=== PATIENT | male | born 1970 | race African-American/Black ===

== ENCOUNTER 2018-09-30 22:01 | Observation (INO) | payer OTHER ==
--- OUTSIDE RECORDS SUMMARY | 2018-09-30 22:04 | XMS REPORT | Summary of Care ---
:1970 Author Organization [facility] Address [address] [place] [address], [facility] [address] [place] [address]- Encounter HQ Chandler_hallie(FIN) [phone] Date(s): 11/06/17 - 11/06/17 [facility] Spine [address], [facility] [address] [place] [address] [phone] Attending Physician: Yocasta Ko MD Referring Physician: Edwin Jacobsen MD Vital Signs No data available for this section Problem List Condition Effective Dates Status Health Status Informant Aftercare1 02/02/12 Active Allergic rhinitis2 03/07/12 Active Benign hypertension3 Active Carpal tunnel syndrome4 04/02/12 Active Cervical radiculopathy5 04/08/12 Active Chest pain6 12/11/12 Active Disorder of nasal cavity7 01/02/13 Active Duodenitis8 Active Fatigue9 09/09/12 Active Gastro-esophageal reflux disease 12/11/12 Active with moufimnrdaw97 Nytzokcoubzykqo17, 12 04/28/12 Resolved Gastroesophageal reflux hkxqkho30 Active Gout14 02/02/12 Active Guezgmjduuclyh56 Active Imaging of gastrointestinal tract 01/02/13 Active irhvxovw25 Inguinal pain17 12/11/12 Active Kidney botkpil27 01/02/13 Active Left upper quadrant pain19 01/02/13 Active Numbness of limbs20 04/03/12 Active Obesity(Confirmed) Active Obstruction of Eustachian tube21 01/02/13 Active Nrsdnjhjfq67 12/11/12 Active Sleep apnea23 09/09/12 Active 1Data migrated from [employer] on 12/11/14.2Data migrated from [employer] on 12/11/14.3Data migrated from [employer] on 12/11/14.4Data migrated from [employer] on 12/11/14.5Data migrated from [employer] on 12/11/14.6Data migrated from [employer] on 12/11/14.7Data migrated from [employer] on 12/11.8Data migrated from [employer] on 12/11/14.9Data migrated from [employer] on 12/11/14.10Data migrated from [employer] on 12/11/14.11Data migrated from [employer] on 01/29/15.12Data migrated from [employer] on .13Data migrated from [employer] on 12/11/14.14Data migrated from [employer] on 12/11/14.15Data migrated from [employer] on 12/11/14.16Data migrated from [employer] on 12/11/14.17Data migrated from [employer] on .18Data migrated from [employer] on 12/11/14.19Data migrated from [employer] on 12/11/14.20Data migrated from [employer] on 12/11/14.21Data migrated from [employer] on 12/11/14.22Data migrated from [employer] on .23Data migrated from [employer] on 12/11/14. Allergies, Adverse Reactions, Alerts Substance Reaction Severity Status hydrALAZINE-hydroCHLOROthiazide1 Mild Active 1swelling in face Medications No data available for this section Results No data available for this section Immunizations Given and Recorded Vaccine Date Status Refusal Reason diphtheria/pertussis, acel/tetanus adult1 10/03/10 Given 1Result Comment: tdap. Migrated from OBS ; Data migrated from [employer] on 08/16/2015. Procedures Procedure Date Related Diagnosis Body Site Status Appendectomy Completed Tonsillectomy Completed Social History Social History Type Response Substance Abuse Use: None. Employment/School Status: Employed. 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 Activity level: Occasional physical work. Highest education level: High school. Alcohol Current, Type Beer. Frequency: 1-2 times per month. Alcohol use interferes with work or home: No. Drinks more than intended: No. Others hurt by drinking: No. Household alcohol concerns: No. Smoking Status Never smoker; Ready to change: No; Concerns about tobacco use in household: No; Exposure to Tobacco Smoke None; Cigarette Smoking Last 365 Days No; Reg Smoking Cessation Counseling No entered on: 10/15/17 Assessment and Plan No data available for this section
--- OUTSIDE RECORDS SUMMARY | 2018-09-30 22:04 | XMS REPORT | Summary of Care ---
:1970 Author Organization [facility] Address [address] [place] [address]- Encounter HQ Shaw(FIN) [id number] Date(s): 10/15/17 - 10/15/17 [facility] [address] [place] [address] [phone] Discharge Disposition: Home or Self Care Attending Physician: Carlos Trinidad PAIsaiahC Referring Physician: Jody Vincent MSN, RN, MARINE ENGINE MACHINIST APPRENTICE-C Vital Signs Most recent to oldest [Reference Range]: 1 Height 187.96 cm (10/15/17 7:13 AM) Temperature Oral [96.4-99.1 DegF] 98.1 DegF (10/15/17 7:13 AM) Blood Pressure [90-140/60-90 mmHg] 114/80 mmHg (10/15/17 7:13 AM) Peripheral Pulse Rate [60-100 bpm] 76 bpm (10/15/17 7:13 AM) Weight 122.727 kg (10/15/17 7:13 AM) Body Mass Index 34.74 m2 (10/15/17 7:13 AM) Problem List Condition Effective Dates Status Health Status Informant Aftercare1 02/02/12 Active Allergic rhinitis2 03/07/12 Active Benign hypertension3 Active Carpal tunnel syndrome4 04/02/12 Active Cervical radiculopathy5 04/08/12 Active Chest pain6 12/11/12 Active Disorder of nasal cavity7 01/02/13 Active Duodenitis8 Active Fatigue9 09/09/12 Active Gastro-esophageal reflux disease 12/11/12 Active with xnamvczmdku32 Pcstdolwuhelpme58, 12 04/28/12 Resolved Gastroesophageal reflux sdavveh12 Active Gout14 02/02/12 Active Trsxagkszxiygh34 Active Imaging of gastrointestinal tract 01/02/13 Active taauaehd67 Inguinal pain17 12/11/12 Active Kidney srgculk49 01/02/13 Active Left upper quadrant pain19 01/02/13 Active Numbness of limbs20 04/03/12 Active Obesity(Confirmed) Active Obstruction of Eustachian tube21 01/02/13 Active Jrdbyupabo28 12/11/12 Active Sleep apnea23 09/09/12 Active 1Data [...] hydrALAZINE-hydroCHLOROthiazide1 Mild Active 1swelling in face Medications triamcinolone ACETONIDE 40 mg/mL injectable suspension 60 mg, Route: IM, ONCE, Dosing Weight 122.727, kg, Start date: 10/15/17 7:29:00 CDT, Stop date: 10/15/17 7:29:00 CDT Start Date: 10/15/17 Stop Date: 10/15/17 Status: Completed Results No data available for this section Immunizations Given and Recorded Vaccine Date Status Refusal Reason diphtheria/pertussis, acel/tetanus adult1 10/03/10 Given 1Result Comment: tdap. Migrated from [employer] ; Data migrated from [employer] on 08/16/2015. Procedures Procedure Date Related Diagnosis Body Site Status Appendectomy Completed Tonsillectomy Completed Social History Social History Type Response Substance Abuse Use: None. Employment/School Status: Employed. 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 Activity level: Occasional physical work. Highest [...]
--- OUTSIDE RECORDS SUMMARY | 2018-09-30 22:04 | XMS REPORT | Summary of Care ---
:1970 Author Organization [facility] Spine Clinic [facility] Address [address] [place] [address], [facility] [address] [place] [address]- Encounter HQ Chandler_hallie(FIN) [id number] Date(s): 09/11/17 - 09/12/17 [facility] Spine [address], [facility] [address] [place] [phone] Vital Signs No data available for this section Problem List Condition Effective Dates Status Health Status Informant Aftercare1 02/02/12 Active Allergic rhinitis2 03/07/12 Active Benign hypertension3 Active Carpal tunnel syndrome4 04/02/12 Active Cervical radiculopathy5 04/08/12 Active Chest pain6 12/11/12 Active Disorder of nasal cavity7 01/02/13 Active Duodenitis8 Active Fatigue9 09/09/12 Active Gastro-esophageal reflux disease 12/11/12 Active with augdmjvsvok55 Jvjewqdrtsrwffj52, 12 04/28/12 Resolved Gastroesophageal reflux avlavrk21 Active Gout14 02/02/12 Active Ytthfjbrametii47 Active Imaging of gastrointestinal tract 01/02/13 Active ivilrkjd29 Inguinal pain17 12/11/12 Active Kidney ejljscc77 01/02/13 Active Left upper quadrant pain19 01/02/13 Active Numbness of limbs20 04/03/12 Active Obesity(Confirmed) Active Obstruction of Eustachian tube21 01/02/13 Active Czyzwuexxb94 12/11/12 Active Sleep apnea23 09/09/12 Active 1Data [...] Use: None. Employment/School Status: Employed. 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 Activity level: Occasional physical work. Highest [...]
--- OUTSIDE RECORDS SUMMARY | 2018-09-30 22:04 | XMS REPORT | Summary of Care ---
:1970 Author Organization [facility] Spine Clinic [facility] Address [address] [place] [address], [facility] [address] [place] [address]- Encounter HQ Chandler_hallie(FIN) [id number] Date(s): 09/02/17 - 09/03/17 [facility] Spine [address], [facility] [address] [place] [address] [phone] Vital Signs No data available for this section Problem List Condition Effective Dates Status Health Status Informant Aftercare1 02/02/12 Active Allergic rhinitis2 03/07/12 Active Benign hypertension3 Active Carpal tunnel syndrome4 04/02/12 Active Cervical radiculopathy5 04/08/12 Active Chest pain6 12/11/12 Active Disorder of nasal cavity7 01/02/13 Active Duodenitis8 Active Fatigue9 09/09/12 Active Gastro-esophageal reflux disease 12/11/12 Active with hrdcwlyofbv46 Mngwhlidfpczfnj79, 12 04/28/12 Resolved Gastroesophageal reflux Active Gout14 02/02/12 Active Xexywxfrdpbrcm84 Active Imaging of gastrointestinal tract 01/02/13 Active uhwnmbnk21 Inguinal pain17 12/11/12 Active Kidney kbpjyag05 01/02/13 Active Left upper quadrant pain19 01/02/13 Active Numbness of limbs20 04/03/12 Active Obesity(Confirmed) Active Obstruction of Eustachian tube21 01/02/13 Active Opdifyugfn26 12/11/12 Active Sleep apnea23 09/09/12 Active 1Data [...] Use: None. Employment/School Status: Employed. 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 Activity level: Occasional physical work. Highest [...]
--- OUTSIDE RECORDS SUMMARY | 2018-09-30 22:04 | XMS REPORT | Continuity of Care Document ---
:1970 Author Organization Interface Problems Problem Status Onset Classification Date Comments Source Date Reported Disorder of nasal Active 01/03/20 Problem 01/23/2018 Data [facility] cavity<sup>7</sup> 13 migrated Neuro,[facility] from [facility] on 12/11/14. Imaging of Active 01/03/20 Problem 01/23/2018 Data [facility] gastrointestinal 13 migrated Neuro,[facility] tract from [facility] abnormal<sup>16</paul [facility] Group p> on 12/11/14. Kidney Active 01/03/20 Problem 01/23/2018 Data [facility] disease<sup>18</sup 13 migrated Neuro,MH > from [facility] [facility] on 12/11/14. Left upper quadrant Active 01/03/20 Problem 01/23/2018 Data [facility] pain<sup>19</sup> 13 migrated Neuro,[facility] from [facility] on 12/11/14. Obstruction of Active 01/03/20 Problem 01/23/2018 Data [facility] Eustachian 13 migrated Neuro,MH tube<sup>21</sup> from [facility] [employer] [facility] on 12/11/14. Chest Active 12/12/19 Problem 01/23/2018 Data [facility] pain<sup>6</sup> 13 migrated Neuro,[facility] from [facility] on 12/11/14. Gastro-esophageal Active 12/12/19 Problem 01/23/2018 Data [facility] reflux disease with 13 migrated Neuro,[facility] esophagitis<sup>10< from [facility] /sup> [facility] on 12/11/14. Inguinal Active 12/12/19 Problem 01/23/2018 Data [facility] pain<sup>17</sup> 13 migrated Neuro,[facility] from [facility] on 12/11/14. Overweight<sup>22</ Active 12/12/19 Problem 01/23/2018 Data [facility] sup> 13 migrated Neuro,[facility] from [facility] on 12/11/14. Fatigue<sup>9</sup> Active 09/09/19 Problem 01/23/2018 Data [facility] 13 migrated Neuro,[facility] from [facility] on 12/11/14. Sleep Active 09/09/19 Problem 01/23/2018 Data [facility] apnea<sup>23</sup> 13 migrated Neuro,[facility] from [facility] on 12/11/14. Gastroenteritis<sup Resolved 04/28/20 Problem 01/23/2018 Data [facility] >11, 12</sup> 12 migrated Neuro,[facility] from [facility] on 01/28/15. Cervical Active 04/08/20 Problem 01/23/2018 Data [facility] radiculopathy<sup>5 12 migrated Neuro,[facility] </sup> from [facility] on 12/11/14. Numbness of Active 04/03/20 Problem 01/23/2018 Data [facility] limbs<sup>20</sup> 12 migrated Neuro,[facility] from [facility] on 12/11/14. Carpal tunnel Active 04/02/20 Problem 01/23/2018 Data [facility] syndrome<sup>4</sup 12 migrated Neuro,MH > from [facility] on 12/11/14. Allergic Active 03/07/20 Problem 01/23/2018 Data [facility] rhinitis<sup>2</sup 12 migrated Neuro,MH > from [facility] on 12/11/14. Aftercare<sup>1</paul Active 02/02/20 Problem 01/23/2018 Data [facility] p> 12 migrated Neuro,[facility] from [facility] on 12/11/14. Gout<sup>14</sup> Active 02/02/20 Problem 01/23/2018 Data [facility] 12 migrated Neuro,MH from [facility] on 12/11/14. Benign Active Problem 01/23/2018 Data [facility] hypertension<sup>3< migrated Neuro,MH /sup> from [facility] on 12/11/14. Duodenitis<sup>8</s Active Problem 01/23/2018 Data [facility] up> migrated Neuro,MH from [facility] on 12/11/14. Gastroesophageal Active Problem 01/23/2018 Data [facility] reflux migrated Neuro,[facility] disease<sup>13</sup from [facility] on 12/11/14. Hyperlipidemia<sup> Active Problem 01/23/2018 Data [facility] 15</sup> migrated Neuro,[facility] from [facility] on 12/11/14. Obesity Active Problem 01/23/2018 [facility] Pain in right foot Active Diagnosis 12/13/2017 Cathie Najam Stiffness of right Active Diagnosis 12/13/2017 Cathie foot, not elsewhere Najam classified Gout Active Diagnosis 12/18/2017 Cathie Najam Toe joint pain Active Diagnosis 12/18/2017 Cathie Najam Toe swelling Active Diagnosis 12/18/2017 Cathie Najam Medications Medication Details Route Status Patient Ordering Order Source Instructions Provider Date Indomethacin 1 capsule Orally Active 50 MG Orally Aldrich Cathie with food Twice a day 018 Najam or milk Allopurinol 1 tablet Orally Active 100 MG Orally Aldrich Cathie Once a day 018 Najam triamcinolone 60 mg, Inactive ACETONIDE 40 Route: IM, 018 Medical mg/mL injectable ONCE, Group suspension Dosing Weight 122.727, kg, Start date: 10/15/17 7:29:00 CDT, Stop date: 10/15/17 7:29:00 CDT Protonix 1 tab Oral Active Oral Aldrich Cathie Najam Amlodipine 1 tablet Orally Active 10 MG Orally Aldrich Cathie Besylate Once a day Najam Losartan 1 tablet Orally Active 50 MG Orally Aldrich Cathie Potassium Once a day Najam Indomethacin 1 capsule Orally Active 50 MG Orally Aldrich Cathie with food Twice a day Najam or milk Allopurinol 1 tablet Orally Active 100 MG Orally Aldrich Cathie Once a day Najam Allergies, Adverse Reactions, Alerts Substance Category Reaction Severity Reaction Status Date Comments Source type Reported Hydrochlorothi Adverse Info Not Adverse Active Cathie azide Reaction Available Reaction 8 Najam Cheratussin AC Adverse Info Not Adverse Active Cathie Reaction Available Reaction 8 Najam hydrALAZINE-hy Assertion Mild Drug Active swelling [facility]ischer droCHLOROthiaz allergy in face Neuro maribeth<sup>1</sup > Immunizations Immunization Date Given Site Status Last Comments Source Updated diphtheria/pertus 10/03/2010 completed [facility] Result [facility] sis, acel/tetanus Comment: tdap. Neuro,[facility] adult<sup>1</sup> Migrated from Medical OBS ; Data Group migrated from [employer] on 08/16/2015. Results Order Results Value Reference Date Interpretation Comments Source Name Range Vital Signs Vital Sign Value Date Comments Source Height 66 12/17/2017 Cathie Tang Diastolic (mm Hg) 82 12/17/2017 Cathie Tang Systolic (mm Hg) 120 12/17/2017 Cathie Tang Weight 283 12/17/2017 Cathie Tang Height 187.96 cm 10/15/2017 Medical Group Systolic (mm Hg) 114 10/15/2017 Medical Group Diastolic (mm Hg) 80 10/15/2017 Medical Group Heart Rate 76 10/15/2017 Medical Group Temperature Oral (F) 98.1 F 10/15/2017 Medical Group Weight 122.727 10/15/2017 Medical Group BMI Calculated 34.74 10/15/2017 Medical Group Encounters Location Location Encounter Encounter Reason Attending ADM DC Status Source Details Type Number For Provider Date Date Visit Outpatient [id number] CARLOS 05/[address] [facility] /2014 [place] [facility] [id number] DOUGLAS 05/20 [facility] [place] Outpatient [id number] DOUGLAS 06/24 [facility] [place] Outpatient [id number] CARLOS 10/[address] [facility] [place] Outpatient [id number] [facility] 10/[address] [facility] PEREZ [place] Outpatient [id number] [facility] 04/[address] [facility] PEREZ [place] [facility] Phone [phone] 09/03 09/04 [facility] Message /2017 [facility] Phone [id number] 09/11 [facility] [id number] CARLOS 10/[address] [facility] PEREZ [facility] Outpatient [id number] Carlos 10/15 10/16 [facility] Perez /2017 [facility] Phone [id number] 10/16 10/18 [facility] Message /2017 [facility] Ambulatory [id number] Edwin 11/06 11/06 [facility] Pre-Reg [facility] Procedures Procedure Code Date Perfomer Comments Source Appendectomy [id number] [facility] Tonsillectomy [id number] [facility] Appendectomy [id number] [facility] Tonsillectomy [id number] [facility]
--- OUTSIDE RECORDS SUMMARY | 2018-09-30 22:05 | XMS REPORT ---
:1970 Author Organization [employer] Care Team Providers Name Role Phone Kimberley Aldrich Provider Role Unavailable Allergies No Known Allergies Problems Problem Type Condition Code Onset Dates Condition Status Assessment Pain in right foot M79.671 Active Assessment Stiffness of right foot, not M25.674 Active elsewhere classified Problem Gout M10.9 Active Medications No Known Medications Results No Known Results Summary Purpose [employer]ClinicalWorks Submission
--- OUTSIDE RECORDS SUMMARY | 2018-09-30 22:05 | XMS REPORT ---
:1970 Author Organization [employer] Care Team Providers Name Role Phone Kimberley Aldrich Provider Role Unavailable Allergies, Adverse Reactions, Alerts Substance Reaction Event Type Hydrochlorothiazide Info Not Available Drug Allergy Cheratussin AC Info Not Available Drug Allergy Problems Problem Type Condition Code Onset Dates Condition Status Assessment Gout M10.9 Active Assessment Toe joint pain M25.579 Active Problem Gout M10.9 Active Assessment Toe swelling M79.89 Active Medications Medication Code Code Instructions Start End Status Dosage System Date Date Amlodipine ND 59073680594 10 MG Orally Active 1 tablet Besylate Once a day Indomethacin ND 82758742130 50 MG Orally Active 1 capsule Twice a day with food or milk Losartan NDC 20056086267 50 MG Orally Active 1 tablet Potassium Once a day Protonix NDC 0 Oral Active 1 tab Allopurinol ND 93043760108 100 MG Orally Active 1 tablet Once a day Vital Signs Date/Time: December 17, 2017 Height 66 in Blood Pressure Diastolic 82 mm Hg Blood Pressure Systolic 120 mm Hg Weight 283 lbs Results No Known Results Summary Purpose eClinicalWorks Submission
--- OUTSIDE RECORDS SUMMARY | 2018-09-30 22:05 | XMS REPORT | Summary of Care ---
:1970 Author Organization [facility] Spine Clinic [facility] Address [address] [place] [address], [facility] [address] [place] [address]- Encounter HQ Chandler_hallie(FIN) [id number] Date(s): 10/16/17 - 10/17/17 [facility] Spine [address], [facility] [address] [place] [address] [phone] Vital Signs No data available for this section Problem List Condition Effective Dates Status Health Status Informant Aftercare1 02/02/12 Active Allergic rhinitis2 03/07/12 Active Benign hypertension3 Active Carpal tunnel syndrome4 04/02/12 Active Cervical radiculopathy5 04/08/12 Active Chest pain6 12/11/12 Active Disorder of nasal cavity7 01/02/13 Active Duodenitis8 Active Fatigue9 09/09/12 Active Gastro-esophageal reflux disease 12/11/12 Active with xcvwdjmaryl36 Jvyenouqerbjvky06, 12 04/28/12 Resolved Gastroesophageal reflux toxusvq66 Active Gout14 02/02/12 Active Txtppoulzyougg39 Active Imaging of gastrointestinal tract 01/02/13 Active ihdfpauq56 Inguinal pain17 12/11/12 Active Kidney cosryqc88 01/02/13 Active Left upper quadrant pain19 01/02/13 Active Numbness of limbs20 04/03/12 Active Obesity(Confirmed) Active Obstruction of Eustachian tube21 01/02/13 Active Mqddbqcdrq37 12/11/12 Active Sleep apnea23 09/09/12 Active 1Data [...] Use: None. Employment/School Status: Employed. 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 Activity level: Occasional physical work. Highest [...]
--- OUTSIDE RECORDS SUMMARY | 2018-09-30 22:05 | XMS REPORT ---
:1970 Author Organization [employer] Care Team Providers Name Role Phone Kimberley Aldrich Provider Role Unavailable Allergies, Adverse Reactions, Alerts Substance Reaction Event Type Hydrochlorothiazide Info Not Available Drug Allergy Cheratussin AC Info Not Available Drug Allergy Problems Problem Type Condition Code Onset Dates Condition Status Assessment Gout M10.9 Active Problem Gout M10.9 Active Medications Medication Code Code Instructions Start End Status Dosage System Date Date Protonix NDC 0 Oral Active 1 tab Indomethacin NDC 66564051582 50 MG Orally November 27, Sept Active 1 capsule Twice a day 2017 13, with food 2018 or milk Amlodipine NDC 89255157177 10 MG Orally Active 1 tablet Besylate Once a day Losartan NDC 51021780329 50 MG Orally Active 1 tablet Potassium Once a day Allopurinol ND 90168553262 100 MG Orally November 27, Apr 26, Active 1 tablet Once a day 2017 2017 Results No Known Results Summary Purpose eClinicalWorks Submission
[2018-09-30 23:19] LABS: Absolute Lymphocytes (CBC) 1.8 K/uL (0.7-4.9); Absolute Monocytes 0.7 K/uL (0.1-1.3); Absolute Neutrophil 5.9 K/uL (1.8-8.0); Basophils % 0.6 % (0-1.3); Eosinophils % 2.5 % (0-4.4); Hematocrit 41.5 % (39.6-49.0); Lymphocytes % 20.2 % (15.3-44.8); MPV 9.9 fL (7.6-11.3); Monocytes % 8.6 % (3.3-12.3); RBC Red Blood Cell Count 5.02 M/uL (4.33-5.43)
[2018-09-30 23:37] LABS: ALT/SGPT 32 U/L (12-78); AST/SGOT 18 U/L (15-37); Albumin 3.4 g/dL (3.4-5.0); Alkaline Phosphatase 125 U/L (45-117); BUN Blood Urea Nitrogen 15 mg/dL (7-18); Bicarbonate 27 mmol/L (21-32); Bilirubin Direct < 0.1 mg/dL (0-0.2); Bilirubin Total 0.2 mg/dL (0.2-1.0); Glucose Level 189 mg/dL (74-106); NT PRO-BNP < 5 pg/mL (<125); Potassium 3.8 mmol/L (3.5-5.1); Protein, Total 6.9 g/dL (6.4-8.2); Sodium Level 141 mmol/L (136-145); Troponin (Emerg Dept Use Only) < 0.02 ng/mL (0.0-0.045)
[2018-10-01] MEDS ORDERED: NA CHLORIDE 0.9% 1,000 ML ONE (00:08)
--- NOTE | 2018-10-01 00:16 | EDPHYS ---
Physician Documentation [facility] Name: Ciara Guillermo Age: 47 yrs Sex: Male : 1970 Arrival Date: 09/30/2018 Time: 22:04 Bed 8 Private MD: Edwin Jacobsen V ED Physician Jason Horvath HPI: 10/01 00:40 This 47 yrs old Black Male presents to ER via Ambulatory with complaints of Heart tw4 raceing, pain under arm, congestion. 00:40 The patient presents with a history of irregular heart beat. Context: The symptoms tw4 occur at rest. Onset: The symptoms/episode began/occurred today. Duration: The patient or guardian reports a single episode, that is now resolved. Modifying factors: The symptoms are aggravated by nothing. The symptoms are alleviated by nothing. Associated signs and symptoms: The patient has no apparent associated signs or symptoms. Severity of symptoms: At their worst the symptoms were moderate in the emergency department the symptoms are unchanged. The patient has not experienced similar symptoms in the past. Historical: - Allergies: 09/30 22:09 Pvylkzb-Kdb-Oaj Reductase Inhibitors; lp1 22:09 Cheratussin AC; lp1 - Home Meds: 22:09 Protonix Oral [Active]; amlodipine oral [Active]; losartan oral oral [Active]; lp1 - PMHx: 22:09 Hypertension; lp1 - PSHx: 22:09 Appendectomy; Tonsillectomy; lp1 - Immunization history:: Adult Immunizations up to date. - Social history:: Smoking status: Patient/guardian denies using tobacco. - Ebola Screening: : No symptoms or risks identified at this time. ROS: 10/01 01:10 Constitutional: Negative for fever, chills, and weight loss, Eyes: Negative for injury, tw4 pain, redness, and discharge. Neck: Negative for injury, pain, and swelling, Respiratory: Negative for shortness of breath, cough, wheezing, and pleuritic chest pain, Abdomen/GI: Negative for abdominal pain, nausea, vomiting, diarrhea, and constipation, Back: Negative for injury and pain, MS/Extremity: Negative for injury and deformity, Skin: Negative for injury, rash, and discoloration. Cardiovascular: Positive for chest pain, palpitations, Negative for edema, orthopnea. Exam: 01:10 Constitutional: This is a well developed, well nourished patient who is awake, alert, tw4 and in no acute distress. Head/Face: Normocephalic, atraumatic. Chest/axilla: Normal chest wall appearance and motion. Nontender with no deformity. No lesions are appreciated. Cardiovascular: Regular rate and rhythm with a normal S1 and S2. No gallops, murmurs, or rubs. Normal PMI, no JVD. No pulse deficits. Respiratory: Lungs have equal breath sounds bilaterally, clear to auscultation and percussion. No rales, rhonchi or wheezes noted. No increased work of breathing, no retractions or nasal flaring. Abdomen/GI: Soft, non-tender, with normal bowel sounds. No distension or tympany. No guarding or rebound. No evidence of tenderness throughout. Back: No spinal tenderness. No costovertebral tenderness. Full range of motion. MS/ Extremity: Pulses equal, no cyanosis. Neurovascular intact. Full, normal range of motion. Neuro: Awake and alert, GCS 15, oriented to person, place, time, and situation. Cranial nerves II-XII grossly intact. Motor strength 5/5 in all extremities. Sensory grossly intact. Cerebellar exam normal. Normal gait. Vital Signs: 09/30 22:09 BP 135 / 87; Pulse 79; Resp 18; Temp 98.7; Pulse Ox 97% on R/A; Weight 120.2 kg (R); lp1 Height 6 ft. 2 in. (187.96 cm); Pain 0/10; 22:25 BP 127 / 81 Supine; Pulse 82; Resp 17; Pulse Ox 98% on R/A; rr5 22:26 BP 135 / 90 Sitting; Pulse 85; Resp 16; Pulse Ox 97% on R/A; rr5 22:27 BP 140 / 93; Pulse 98; Resp 20; Pulse Ox 98% on R/A; rr5 23:30 BP 128 / 78; Pulse 69; Resp 17; Pulse Ox 98% ; rr5 10/01 00:00 BP 132 / 78; Pulse 69; Resp 16; Pulse Ox 98% ; rr5 00:48 BP 111 / 63; Pulse 88; Resp 19; Pulse Ox 99% ; rr5 01:54 BP 128 / 64; Pulse 60; Resp 18; Temp 98.7(O); Pulse Ox 97% on R/A; ak1 09/30 22:09 Body Mass Index 34.02 (120.20 kg, 187.96 cm) lp1 MDM: 09/30 22:12 Patient medically screened. tw10/01 01:10 Differential diagnosis: arrythmia, dehydration. Data reviewed: vital signs, nurses tw4 notes. Data interpreted: Pulse oximetry: Interpretation: normal. Counseling: I had a detailed discussion with the patient and/or guardian regarding: the historical points, exam findings, and any diagnostic results supporting the discharge/admit diagnosis, lab results, radiology results. Physician consultation: Edwin Jacobsen MD was contacted at 23:30, regarding admission, patient's condition, and will see patient in inpatient room. Admission orders: after a detailed discussion of the patient's condition and case, the admit orders are written by me. 09/30 22:26 Order name: Basic Metabolic Panel; Complete Time: 23:[address] [facility] 09/30 23:49 Interpretation: GLUC 189; CRE 1.35; GFR 68. tw09/30 22:26 Order name: CBC with Diff; Complete Time: 23:50 tw 09/30 22:26 Order name: LFT's; Complete Time: 23:[address] [facility] 09/30 23:50 Interpretation: Normal except: ALK 125; A/G 1.0. 09/30 22:26 Order name: Magnesium; Complete Time: 23:[address] [facility] 09/30 23:50 Interpretation: Within normal limits: MG 2.0. 09/30 22:26 Order name: NT PRO-BNP; Complete Time: 23:[address] [facility] 09/30 23:50 Interpretation: Within normal limits: NT PRO-BNP < 5. 09/30 22:26 Order name: PT-INR; Complete Time: 23:[address] [facility] 09/30 23:50 Interpretation: Within normal limits: PT 11.8. 09/30 22:26 Order name: Troponin (emerg Dept Use Only); Complete Time: 23:[address] [facility] 09/30 23:50 Interpretation: Within normal limits: TROPED < 0.02. tw 10/01 01:07 Order name: Basic Metabolic Panel [facility] 10/01 01:07 Order name: Basic Metabolic Panel [facility] 10/01 01:07 Order name: CBC with Automated Diff [facility] 10/01 01:07 Order name: CBC with Automated Diff [facility] 10/01 01:07 Order name: Troponin I [facility] 10/01 01:07 Order name: Troponin I [facility] 10/01 01:07 Order name: Troponin I [facility] 09/30 22:26 Order name: XRAY Chest (1 view) tw4 09/30 22:26 Order name: EKG; Complete Time: 22:28 09/30 22:26 Order name: Cardiac monitoring; Complete Time: 22:56 09/30 22:26 Order name: EKG - Nurse/Tech; Complete Time: 22:56 09/30 22:26 Order name: IV Saline Lock; Complete Time: 22:57 09/30 22:26 Order name: Labs collected and sent; Complete Time: 22:57 4 09/30 22:26 Order name: O2 Per Protocol; Complete Time: 22:57 4 09/30 22:26 Order name: O2 Sat Monitoring; Complete Time: 22:57 4 10/01 01:07 Order name: EKG Electrocardiogram [facility] 10/01 01:07 Order name: EKG Electrocardiogram [facility] 10/01 01:07 Order name: EKG Electrocardiogram [facility] 10/01 01:07 Order name: EKG Electrocardiogram [facility] EC:20 Rate is 74 beats/min. Rhythm is regular. QRS [place] is Normal. DE interval is normal. QRS tw4 interval is normal. QT interval is normal. No Q waves. T waves are Normal. No ST changes noted. Clinical impression: Normal ECG. Interpreted by me. Reviewed by me. Administered Medications: 00:02 Drug: NS 0.9% 1000 ml Route: IV; Rate: 1 bolus; Site: right forearm; rr5 01:52 Follow up: IV Status: Completed infusion; IV Intake: 1000ml ak1 Disposition: 10/01/18 00:15 Hospitalization ordered by Edwin Jacobsen for Observation. Preliminary diagnosis is Chest pain, unspecified. - Bed requested for Telemetry/MedSurg (observation). - Status is Observation. rr5 - Condition is Stable. - Problem is new. - Symptoms have improved. UTI on Admission? No Signatures: Dispatcher [employer] EDRain Soto RN RN Maribeth Acosta RN RN lp1 Jason Horvath MD MD tw4 Cayden Oropeza RN RN rr5 Kimberley Anderson RN ak1 Corrections: (The following items were deleted from the chart) 01:37 00:15 Hospitalization Ordered by Edwin Jacobsen MD for Observation. Preliminary diagnosis mw is Chest pain, unspecified. Bed requested for Telemetry/MedSurg (observation). Status is Observation. Condition is Stable. Problem is new. Symptoms have improved. UTI on Admission? No. tw4 01:47 01:37 10/01/2018 00:15 Hospitalization Ordered by Edwin Jacobsen MD for Observation. mw Preliminary diagnosis is Chest pain, unspecified. Bed requested for Telemetry/MedSurg (observation). Status is Observation. Condition is Stable. Problem is new. Symptoms have improved. UTI on Admission? No. mw 02:21 01:47 10/01/2018 00:15 Hospitalization Ordered by Edwin Jacobsen MD for Observation. rr5 Preliminary diagnosis is Chest pain, unspecified. Bed requested for Telemetry/MedSurg (observation). Status is Observation. Condition is Stable. Problem is new. Symptoms have improved. UTI on Admission? No. mw
--- NOTE | 2018-10-01 00:16 | ER ---
Nurse's Notes [facility] Name: Ciara Guillermo Age: 47 yrs Sex: Male : 1970 Arrival Date: 09/30/2018 Time: 22:04 Bed 8 Private MD: Edwin Jacobsen V Diagnosis: Chest pain, unspecified Presentation: 09/30 22:06 Presenting complaint: Patient states: Has been feeling heart racing since the weekend; lp1 Seen by urologist today and told to come to ER for high heart rate, rate of 107 while at appointment; States some dizziness when bending over. Transition of care: patient was not received from another setting of care. Onset of symptoms was September 30, 2018. Risk Assessment: Do you want to hurt yourself or someone else? Patient reports no desire to harm self or others. Initial Sepsis Screen: Does the patient meet any 2 criteria? No. Patient's initial sepsis screen is negative. Does the patient have a suspected source of infection? No. Patient's initial sepsis screen is negative. Care prior to arrival: None. 22:06 Method Of Arrival: Ambulatory lp1 22:06 Acuity: CLINT 3 lp1 Historical: - Allergies: 22:09 Icdxaiq-Bvs-Njm Reductase Inhibitors; lp1 22:09 Cheratussin AC; lp1 - Home Meds: 22:09 Protonix Oral [Active]; amlodipine oral [Active]; losartan oral oral [Active]; lp1 - PMHx: 22:09 Hypertension; lp1 - PSHx: 22:09 Appendectomy; Tonsillectomy; lp1 - Immunization history:: Adult Immunizations up to date. - Social history:: Smoking status: Patient/guardian denies using tobacco. - Ebola Screening: : No symptoms or risks identified at this time. Screenin:56 Abuse screen: Denies threats or abuse. Denies injuries from another. Nutritional rr5 screening: No deficits noted. Tuberculosis screening: No symptoms or risk factors identified. Fall Risk IV access (20 points). Total Marinelli Fall Scale indicates No Risk (0-24 pts). Assessment: 22:25 General: Appears in no apparent distress. comfortable, Behavior is calm, cooperative, rr5 appropriate for age. 22:25 Pain: Complains of pain in left armpit Pain does not radiate. Pain currently is 2 out rr5 of 10 on a pain scale. Quality of pain is described as aching, Pain began gradually, Is intermittent. Neuro: Level of Consciousness is awake, alert, obeys commands, Oriented to person, place, time, situation, Appropriate for age Reports dizziness. Cardiovascular: Reports heart racing Capillary refill < 3 seconds Patient's skin is warm and dry. Respiratory: Reports congestion Airway is patent Respiratory effort is even, unlabored, Respiratory pattern is regular, symmetrical. GI: No signs and/or symptoms were reported involving the gastrointestinal system. : No signs and/or symptoms were reported regarding the genitourinary system. EENT: No signs and/or symptoms were reported regarding the EENT system. Derm: Skin temperature is warm. Musculoskeletal: No signs and/or symptoms reported regarding the musculoskeletal system. 23:30 Reassessment: Patient appears in no apparent distress at this time. Patient is alert, rr5 oriented x 3, equal unlabored respirations, skin warm/dry/pink. no complaints made awaiting for laboratory results. 10/01 00:30 Reassessment: Patient appears in no apparent distress at this time. advised for rr5 admission and agreed. 01:00 Reassessment: Patient appears in no apparent distress at this time. asleep on bed rr5 comfortably. 02:00 Reassessment: Patient appears in no apparent distress at this time. Patient is alert, rr5 oriented x 3, equal unlabored respirations, skin warm/dry/pink. no complaints made. agreed for admission. Vital Signs: 09/30 22:09 BP 135 / 87; Pulse 79; Resp 18; Temp 98.7; Pulse Ox 97% on R/A; Weight 120.2 kg (R); lp1 Height 6 ft. 2 in. (187.96 cm); Pain 0/10; 22:25 BP 127 / 81 Supine; Pulse 82; Resp 17; Pulse Ox 98% on R/A; rr5 22:26 BP 135 / 90 Sitting; Pulse 85; Resp 16; Pulse Ox 97% on R/A; rr5 22:27 BP 140 / 93; Pulse 98; Resp 20; Pulse Ox 98% on R/A; rr5 23:30 BP 128 / 78; Pulse 69; Resp 17; Pulse Ox 98% ; rr5 10/01 00:00 BP 132 / 78; Pulse 69; Resp 16; Pulse Ox 98% ; rr5 00:48 BP 111 / 63; Pulse 88; Resp 19; Pulse Ox 99% ; rr5 01:54 BP 128 / 64; Pulse 60; Resp 18; Temp 98.7(O); Pulse Ox 97% on R/A; ak1 09/30 22:09 Body Mass Index 34.02 (120.20 kg, 187.96 cm) lp1 ED Course: 09/30 22:04 Patient arrived in ED. es 22:05 Edwin Jacobsen MD is Private Physician. es 22:08 Triage completed. lp1 22:09 Arm band placed on right wrist. lp1 22:12 Jason Horvath MD is Attending Physician. tw4 22:30 Patient has correct armband on for positive identification. Placed in gown. Bed in low rr5 position. Call light in reach. Side rails up X2. dressing machine operator on. Pulse ox on. NIBP on. 22:41 XRAY Chest (1 view) In Process Unspecified. EDMS 22:45 Inserted saline lock: 20 gauge in right forearm, using aseptic technique. Blood rr5 collected. 22:50 Cayden Oropeza, SAM is Primary Nurse. rr5 10/01 00:14 Edwin Jacobsen MD is Hospitalizing Provider. tw4 01:53 No provider procedures requiring assistance completed. Patient admitted, IV remains in ak1 place. Administered Medications: 00:02 Drug: NS 0.9% 1000 ml Route: IV; Rate: 1 bolus; Site: right forearm; rr5 01:52 Follow up: IV Status: Completed infusion; IV Intake: 1000ml ak1 Intake: 01:52 IV: 1000ml; Total: 1000ml. ak1 Outcome: 00:15 Decision to Hospitalize by Provider. tw4 01:53 Admitted to Med/surg accompanied by tech, family with patient, via wheelchair, room ak1 214, with chart, Report called to [place]o 01:53 Condition: good 01:53 Instructed on the need for admit. 02:21 Patient left the ED. rr5 Signatures: Dispatcher [employer] EDMS Chelsey Farley Laura, RN RN lp1 Kimberley Anderson RN RN ak1 Jason Horvath MD MD tw4 Cayden Oropeza, SAM RN rr5
[2018-10-01] MEDS ORDERED: ACETAMINOPHEN 500 MG TAB PO PRN (01:05)
--- NOTE | 2018-10-01 08:29 | RAD REPORT ---
EXAM DESCRIPTION: Karishma Single View09/30/2018 10:42 pm CLINICAL HISTORY: Chest pain COMPARISON: 2014 FINDINGS: The lungs appear clear of acute infiltrate. The heart is borderline enlarged IMPRESSION: No acute abnormalities displayed
[2018-10-01] MEDS ORDERED: ASPIRIN EC 81 MG TAB PO SCH (09:00)
[2018-10-01] MEDS ORDERED: LOSARTAN POTASSIUM 50 MG TABLET PO SCH (09:00)
[2018-10-01] MEDS ORDERED: AMLODIPINE 10 MG TAB PO SCH (09:00)
--- NOTE | 2018-10-01 10:01 | RAD REPORT ---
EXAM DESCRIPTION: CT - Angio Aorta For Dissection - 10/01/2018 9:14 am CLINICAL HISTORY: . Chest pain COMPARISON: None TECHNIQUE: Computed tomography angiography of the chest, abdomen pelvis were obtained. 100 cc Isovue 370 was administered intravenously. Coronal and sagittal reconstruction were performed. MIP 3D reconstruction was performed All CT scans are performed using dose optimization technique as appropriate and may include automated exposure control or mA/KV adjustment according to patient size. FINDINGS: An aortic dissection is not seen. An aortic aneurysm is not displayed. A bovine aorta The celiac, SMA and LAVERNE are patent . SMA arises from the celiac artery A lung consolidation is not present. A pericardial effusion is not seen. A pleural effusion is not n oted. The liver,spleen, pancreas adrenals kidneys demonstrate no significant abnormality. Small left renal cyst There is no evidence diverticulitis Mild posterior subluxation of L4 on L5. Disc space narrowing with subchondral sclerosis, subchondral cysts and osteophytes are present. Vacuum phenomena is seen. 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 The neck measures 26 millimeters IMPRESSION: Negative for an aortic dissection. 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
--- NOTE | 2018-10-01 12:20 | EKG ---
Test Date: 2018-09-30 Test Time: 22:34:15 Processing Supervisor: RR MEASUREMENT RESULTS: Intervals: Rate: 74 ND: 136 QRSD: 84 QT: 378 QTc: 419 [place]: P: 44 ND: 136 QRS: 17 T: 18 INTERPRETIVE STATEMENTS: Normal sinus rhythm Normal ECG Compared to ECG 05/28/2015 22:42:44 No significant changes Electronically Signed On 10-01-18 12:19:43 CDT by Lorenzo Barth
--- NOTE | 2018-10-01 16:07 | CON ---
History Of Present Illness: Mr. Guillermo is 47, he came to the hospital with a 5-day history of feeli ng bad. It is a vague thing when he gets up and moves very much is when it bothers him more. There is not any particular symptom, although appears uncomfortable in the head and chest and arms, a littl e bit everywhere. Since he has been in the hospital, he has had normal cardiac enzymes, normal EKG, and echocardiogram indicates a questionable wall motion abnormality, but normal overall ejection frac tion. The patient has borderline glucose intolerance, not on medicines. He takes blood pressure med icines. He does not take cholesterol medicines. He uses no tobacco. Rare alcohol. No illegal drug s. Outpatient Medications: Losartan, amlodipine, Protonix. Allergies: HE IS ALLERGIC TO STATINS, THEY CAUSE FACIAL NUMBNESS. APPARENTLY, HE HAS TRIED 3 DIFFER ENT ONES. Physical Examination: General: He is 6 feet 1 inch, 263 pounds, obese, alert, oriented pleasant not in distress. Lungs: Clear. Cardiac: Normal. Abdomen: Soft. Extremities: Normal. No cyanosis, clubbing, or edema. EKG normal. I will recommend that he undergo a pharmacologic nuclear stress test to see if there is any evidence of CAD. I will review the echocardiogram myself. Mr. Guillermo does not seem to be the highest risk patient for having CAD, although his blood sugars have been 189. It was a random blood sugar, n ot a fasting. AWA/MIGUEL Voice ID: [id number] Report ID: [id number]
--- NOTE | 2018-10-01 16:24 | RAD REPORT ---
EXAM DESCRIPTION: NM - Rest Stress Cardiac Imaging - 10/01/2018 4:16 pm CLINICAL HISTORY: CP Chest pain. COMPARISON: No comparisons TECHNIQUE: The patient was administered approximately 10mCi of Tc 99m Sestamibi prior to resting SPE CT imaging of the heart. The patient was then administered approximately 30 mCi of Tc 99m Sestamibi f ollowing exercise or pharmacologic stress. Multiplanar SPECT images were reviewed. FINDINGS: No stress induced ischemic defect is seen to suggest stress induced ischemia. No fixed def ect is seen to suggest hibernating myocardium or scarred myocardium. The end diastolic volume is 107 ml, the end systolic volume is 57 ml, and the ejection fraction is 47 %. IMPRESSION: No stress induced ischemia.
--- NOTE | 2018-10-01 17:23 | P.SSS ---
Patient History Date of Service: 10/01/18 Reason for admission: Chest pain and back pain History of Present Illness: Mr. Guillermo is a patient with HTN but not other risk factors for CAD, has pain in l side of chest going to back on l side for one day. He has no diaphoresis, nausea or syncope. He is painfree now. Allergies Dzbgscp-Jml-Wgt Reductase Inhibitor Allergy (Verified 10/01/18 03:28) Itching/Hives/Rash Home Medications: Amlodipine [Norvasc*] 10 mg PO DAILY 10/01/18 Losartan Potassium 100 mg PO DAILY 10/01/18 Pantoprazole [Protonix Tab*] 40 mg PO DAILY 10/01/18 - Past Medical/Surgical History Has patient received pneumonia vaccine in the past: No Diabetic: No -: HTn -: Tonsilectomy -: Appendectomy - Family History Father -: Hypertension, Diabetes - Social History Smoking Status: Never smoker Alcohol use: Yes CD- Drugs: No Caffeine use: Yes Place of Residence: Home Review of Systems 10-point ROS is otherwise unremarkable Physical Examination - Vital Signs Temperature: 97.3 F Blood Pressure: 120/74 Pulse: 76 Respirations: 20 Pulse Ox (%): 93 - Physical Exam General: Alert, In no apparent distress HEENT: Atraumatic, PERRLA, Mucous membr. moist/pink, EOMI, Sclerae nonicteric Neck: Supple, 2+ carotid pulse no bruit, No LAD, Without JVD or thyroid abnormality Respiratory: Clear to auscultation bilaterally, Normal air movement Cardiovascular: Regular rate/rhythm, Normal S1 S2 Gastrointestinal: Normal bowel sounds, No tenderness Musculoskeletal: No tenderness Integumentary: No rashes Neurological: Normal gait, Normal speech, Normal strength at 5/5 x4 extr, Normal tone, Normal affect Lymphatics: No axilla or inguinal lymphadenopathy - Studies Laboratory Data (last 24 hrs) 09/30/18 22:45: PT 11.8, INR 1.00 09/30/18 22:45: WBC 8.7, Hgb 14.0, Hct 41.5, Plt Count 345 09/30/18 22:45: Sodium 141, Potassium 3.8, BUN 15, Creatinine 1.35 H, Glucose 189 H, Magnesium 2.0, Total Bilirubin 0.2, AST 18, ALT 32, Alkaline Phosphatase 125 H - Diagnosis (Problem(s)) (1) Atypical chest pain Current Visit: Yes Status: Acute Plan: This pain does not have cardiac character. His stress test is normal. I also did CT dissection protocol that is negative but at T7 he has longitudinal ligament calcification touching the spinal cord. He is stable to go home with no changes in meds. - Disposition Disposition: ROUTINE DISCHARGE Condition: FAIR Patient Discharge Instructions: Ciara, your CT scan and heart test are good. I will see you in office in one week. Diet: AHA
[2018-10-02] MEDS ORDERED: PANTOPRAZOLE 40MG TABLET PO SCH ×2 (06:00→07:00)
--- NOTE | 2018-10-02 08:25 | TREADMILL ---
70% H.R.: 120 85% H.R.: 146 90% H.R.: 155 100% H.R.: 172 DX: ATYPICAL CHEST PAIN Date of Study: 10/01/18 Ht: 6 1 Wt: 263 lb 1.6 oz Consulting Physician: BIANKA MEDICATIONS: TYLENOL, NORAVASC, ASPIRIN, COZAAR, PROTONIX. 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 AT PEAK STRESS: 162/99 146/98 H.R. AT 1 MINUTE POST EXERCISE: 139 IMPRESSION: ROUTINE TREADMILL, CARDIOLITE INJECTED PER PROTOCOL. SEE NUCLEAR MEDICINE REPORT. TREADMILL STOPPED DUE TO TARGET HEART RATE REACHED. NO SUPRA VENTRICULAR TACHYCARDIA, NO VENTRICULAR TACHYCARDIA, PREMATURE ATRIAL COMPLEXES, PREMATURE VENTRICULAR COMPLEXES. PATIENT REPORTES NO CHEST PAIN. NO ST DEPRESSION WITH STRESS.
== END 2018-10-01 18:40 | disposition home or self-care (01) ==
LOC: ER 22:01 → ERHOLD 10-01 01:03 → 2ND 10-01 01:54
PROVIDERS: ADMIT Internal Medicine; ATTEND Internal Medicine
DX: R07.89 Other chest pain (principal); I10 Essential (primary) hypertension; E66.9 Obesity, unspecified; Z68.34 Body mass index [BMI] 34.0-34.9, adult
CPT/HCPCS: 36415; 71045; 71275; 74175; 78452; 80048; 80076; 83735; 83880; 84484; 85025; 85610; 93005; 93017; 96360; 96361; 99285; A9500; G0378; J7030